=== PATIENT | male | born 1980 | race Caucasian/White ===

== ENCOUNTER 2021-10-18 06:03 | Emergency (ER) | payer OTHER ==
[~2021-10-18 06:03] MED LIST: Voltaren Gel 1 % TOP
== END 2021-10-18 07:32 | disposition home or self-care (01) ==
LOC: ER1 06:03
DX: R42 Dizziness and giddiness (principal); Z86.16 Personal history of COVID-19
CPT/HCPCS: 71045; 99284

== ENCOUNTER 2021-10-25 11:54 | Emergency (ER) | payer OTHER ==
[2021-10-25 12:39] LABS: HEMOGLOBIN 17.5 gm/dl (14.0-17.5); RED BLOOD COUNT 5.66 M/UL (4.20-5.50); WHITE BLOOD COUNT 9.2 K/UL (4.5-11.0)
[2021-10-25 12:50] LABS: BUN/CREATININE RATIO 15 (0-10)
[2021-10-28 23:07] LABS: CHLAMYDIA TRACHOMATIS, NAA Negative (Negative); NEISSERIA GONORRHOEAE, NAA Negative (Negative)
== END 2021-10-25 16:20 | disposition home or self-care (01) ==
LOC: ER1 11:54
PROVIDERS: Physician Assistant
DX: N17.9 Acute kidney failure, unspecified (principal); R42 Dizziness and giddiness; R20.2 Paresthesia of skin; Z20.822 Contact with and (suspected) exposure to COVID-19; R94.6 Abnormal results of thyroid function studies; F17.220 Nicotine dependence, chewing tobacco, uncomplicated
CPT/HCPCS: 80048; 81001; 84439; 84443; 85025; 87081; 87880; 99284; J7030; U0002

== ENCOUNTER 2021-10-26 13:30 | Emergency (ER) | payer OTHER ==
[2021-10-27] MEDS ORDERED: VISTARIL 25 MG25 MG PO (22:44)
== END 2021-10-26 17:52 | disposition left against medical advice (07) ==
LOC: ER1 13:30
DX: Z53.21 Procedure and treatment not carried out due to patient leaving prior to being seen by health care provider (principal)

== ENCOUNTER 2021-10-27 17:57 | Emergency (ER) | payer OTHER ==
[2021-10-27 18:55] LABS: HEMOGLOBIN 16.8 gm/dl (14.0-17.5); RED BLOOD COUNT 5.41 M/UL (4.20-5.50); WHITE BLOOD COUNT 14.2 K/UL (4.5-11.0)
[2021-10-27 19:08] LABS: BUN/CREATININE RATIO 20 (0-10)
[2021-10-27] MEDS ORDERED: VISTARIL 25 MG25 MG PO (22:44)
== END 2021-10-27 22:55 | disposition home or self-care (01) ==
LOC: ER1 17:57
PROVIDERS: Physician Assistant
DX: F41.9 Anxiety disorder, unspecified (principal); F17.220 Nicotine dependence, chewing tobacco, uncomplicated; R42 Dizziness and giddiness
CPT/HCPCS: 70450; 71045; 80048; 80307; 81001; 83735; 84439; 84443; 85025; 87086; 93005; 99284; Q0177